=== PATIENT | female | born 1945 | race Caucasian/White ===

== ENCOUNTER → 2016-04-06 | Day surgery (SDC) | payer MEDICARE, OTHER ==
[~2016-04-06] MED LIST: BIOTIN1000 MCG PO; COUMADIN5 MG PO; CRESTOR PO; DESYREL300 MG; ELIQUIS2.5 MG PO; ESTRACE0.5 MG PO; INJECTION; LASIX PO; LEVOTHYROXINE75 MCG PO; LOSARTAN-HCTZ1 EAC2 PO; METFORMIN HCL500 M1 PO; NITROGLYGERIN0.4 MG SL; PHENERGAN25 M1 PO; PHENERGAN25 MG PO; POTASSIUM CHLO20 ME1 PO; REQUIP3 MG PO; VICODIN 5/1 TAB 5/50 PO; ZANTAC150 MG PO; [UNRECOGNIZED DRUG - OTHER]
--- NOTE | ~2016-04-06 | OR ---
Unit #: [id number] #: [id number] Patient: PALOMA OBRIEN [id number] [address] [id number] [id number] MR#: [id number] NAME: PALOMA OBRIEN ROOM: Date of Procedure: 04/06/2016 Admission Date: 04/06/2016 Surgeon: Oracio Mcelroy M.D. : 1945 Attending Physician: Oracio Mcelroy M.D. Primary Care Physician: Luiz Jefferson M.D. OPERATIVE REPORT PREOPERATIVE DIAGNOSIS Nasal fracture. POSTOPERATIVE DIAGNOSIS Nasal fracture. PROCEDURE PERFORMED Closed reduction nasal fracture. ANESTHESIA General endotracheal anesthesia. COMPLICATIONS None. FINDINGS Included a nasal bone deviation to the right. HISTORY This is a 71-year-old female, who fell approximately a week ago and suffered a nasal fracture. She presents with a deviation of her nasal bone to the right. She presents today for a closed reduction of this nasal fracture. DESCRIPTION OF PROCEDURE The patient was placed supine on the operative table. Anesthesia was achieved by general LMA anesthesia. Afrin soaked cotton was then placed through the superior nasal vault bilaterally and left for at least 5 minutes. These were then removed and a Boies elevator was used to reduce her nasal fracture until the nasal bones were adequately at the midline and then a Henderson Splint was then carefully placed. The patient was awakened and transferred to recovery in stable condition. Dictated by... Clark Nguyen/ester TD: 04/06/2016 22:58 JOB #: [id number] Unit #: [id number] #: [id number] Patient: PALOMA OBRIEN OPERATIVE REPORT X Oracio Mcelroy MD PROCEDURE OPERATIVE NOTE
== END | disposition home or self-care (01) ==
LOC: CSUR 07:42
PROVIDERS: Specialist
PROC: 0NSBXZZ Reposition Nasal Bone, External Approach (ICD-10-PCS; principal; 2016-04-06 09:30)
DX: S02.2XXA Fracture of nasal bones, initial encounter for closed fracture (principal); J34.2 Deviated nasal septum; J34.89 Other specified disorders of nose and nasal sinuses; E03.9 Hypothyroidism, unspecified; J45.909 Unspecified asthma, uncomplicated; E11.9 Type 2 diabetes mellitus without complications; I11.0 Hypertensive heart disease with heart failure; Z79.84 Long term (current) use of oral hypoglycemic drugs; I50.30 Unspecified diastolic (congestive) heart failure; D64.9 Anemia, unspecified; Z86.718 Personal history of other venous thrombosis and embolism; I38 Endocarditis, valve unspecified; Z79.01 Long term (current) use of anticoagulants; M19.90 Unspecified osteoarthritis, unspecified site; Z87.01 Personal history of pneumonia (recurrent); Z91.040 Latex allergy status; Z98.890 Other specified postprocedural states; Z88.6 Allergy status to analgesic agent; Z98.1 Arthrodesis status; Z88.1 Allergy status to other antibiotic agents; Z90.710 Acquired absence of both cervix and uterus; Z88.8 Allergy status to other drugs, medicaments and biological substances; Z91.048 Other nonmedicinal substance allergy status; Z91.09 Other allergy status, other than to drugs and biological substances
CPT/HCPCS: 82947; J3010